=== PATIENT | female | born 1950 | race Caucasian/White ===

== ENCOUNTER → 2016-08-31 | Outpatient (CLI) | payer OTHER | LOC: FIMAGING 13:43 | PROVIDERS: ATTEND Family Medicine | DX: Z13.820 Encounter for screening for osteoporosis (principal); M85.80 Other specified disorders of bone density and structure, unspecified site ==

== ENCOUNTER → 2017-07-01 | Outpatient (CLI) | payer OTHER | LOC: BMCIMAGING 09:45 | PROVIDERS: ATTEND Family Medicine | DX: S52.122A Displaced fracture of head of left radius, initial encounter for closed fracture (principal) ==

== ENCOUNTER → 2017-07-19 | Outpatient (CLI) | payer OTHER | LOC: BMCIMAGING 10:14 | PROVIDERS: ATTEND Orthopaedic Surgery Hand Surgery | DX: S52.125D Nondisplaced fracture of head of left radius, subsequent encounter for closed fracture with routine healing (principal); M25.422 Effusion, left elbow ==

== ENCOUNTER → 2017-08-09 | Outpatient (CLI) | payer OTHER | LOC: BMCIMAGING 14:09 | PROVIDERS: ATTEND Orthopaedic Surgery Hand Surgery | DX: S52.122D Displaced fracture of head of left radius, subsequent encounter for closed fracture with routine healing (principal) ==